=== PATIENT | male | born 1980 | race Caucasian/White ===

== ENCOUNTER → 2019-09-03 20:05 | Outpatient (CLI) | payer BC, SELFPAY ==
[2019-07-29 08:15] VITALS: BMI 61.0
== END ==
LOC: SL 20:05
PROVIDERS: Family Provider Family Medicine; PCP Family Medicine; Referring Provider Internal Medicine Critical Care Medicine; Visit Provider Internal Medicine Critical Care Medicine
DX: G47.33 Obstructive sleep apnea (adult) (pediatric) (principal)
CPT/HCPCS: 95811

== ENCOUNTER → 2019-09-24 09:00 | Outpatient (CLI) | payer BC, SELFPAY ==
[2019-07-29 08:15] VITALS: BMI 61.0
== END ==
PROVIDERS: Family Provider Family Medicine; PCP Family Medicine; Referring Provider Internal Medicine Critical Care Medicine; Visit Provider Internal Medicine Critical Care Medicine
DX: G47.33 Obstructive sleep apnea (adult) (pediatric) (principal)

== ENCOUNTER → 2019-11-20 13:00 | Outpatient (CLI) | payer SELFPAY ==
[2019-10-29 09:13] VITALS: BMI 64.5
== END ==
PROVIDERS: Family Provider Family Medicine; PCP Family Medicine; Visit Provider Family Medicine
DX: Z46.89 Encounter for fitting and adjustment of other specified devices (principal)